=== PATIENT | female | born 1990 | race Hispanic/Latino ===

== ENCOUNTER 2024-04-23 08:21 | Emergency (ER) | payer OTHER ==
--- OUTSIDE RECORDS SUMMARY | 2024-04-23 08:24 | XMS REPORT | Continuity of Care Document ---
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 Start time Last Medication Dose Route Stop Time Status Admin Lidocaine HCl 20 ML X1ED STA 04/02 1300 DC 04/02 IM 04/02 1301 1313 Serums, Toxoids, And Vaccines Sig/Zach Start time Last Medication Dose Route Stop Time Status Admin Tetanus/Diphtheria 0.5 ML X1ED STA 04/02 1259 DC Toxoids IM 04/02 1300 Patient Discharge Departure Vital Signs/Condition Vital Signs First Documented: Result Date Time Pulse Ox 97 04/02 1255 B/P 132/87 04/02 1255 B/P Mean 102 04/02 1255 O2 Delivery Room air 04/02 1255 Temp 36.9 04/02 1255 Pulse 115 04/02 1255 Resp 20 04/02 1255 Last Documented: Result Date Time Pulse Ox 97 04/02 1255 B/P 132/87 04/02 1255 B/P Mean 102 04/02 1255 O2 Delivery Room air 04/02 1255 Temp 36.9 04/02 1255 Pulse 115 04/02 1255 Resp 20 04/02 1255 All vital signs available at the time of this entry have been reviewed. Condition Stable Clinical Impression Clinical Impression Primary Impression: Laceration of right forearm Secondary Impressions: Laceration of right thumb Disposition Decision Discharge )( Discharged to Home Yes )( Time 1508 )( Date 04/02/21 Discharge/Care Plan Counseled Regarding Diagnosis, Imaging studies, Prescriptions, Need for follow- up, When to return to ED (Auto) Prescriptions Current Visit Scripts CEPHALEXIN (KEFLEX) 500 MG PO Q6H CEPHALEXIN (KEFLEX) 500 MG PO Q6H #28 CAPS KETOROLAC (TORADOL) 10 MG PO Q6H PRN PRN PAIN KETOROLAC (TORADOL) 10 MG PO Q6H PRN PRN PAIN #20 TABS Patient Instructions ED Laceration Ext Skin Glue Ch, ED Laceration, Hand: All Closures Additional Instructions Suture removal in 10 days. You may return to this facility for suture removal. Referrals Pablo Leon MD at 1511 RPT #:[id number] END OF REPORT [facility]
[2024-04-23] MEDS ORDERED: NA CHLORIDE 0.9% 500 ML ONE (09:09)
[2024-04-23] MEDS ORDERED: IBUPROFEN 400 MG TAB ONE (09:09)
[2024-04-23] MEDS ORDERED: NA CHLORIDE 0.9% 3,000 ML ONE (09:09)
[2024-04-23 09:18] LABS: Absolute Lymphocytes (CBC) 0.2 K/uL (0.7-4.9); Absolute Monocytes 0.9 K/uL (0.1-1.3); Absolute Neutrophil 8.5 K/uL (1.8-8.0); Basophils % 0.4 % (0-1.3); Eosinophils % 0.3 % (0-4.4); Hematocrit 40.4 % (36.0-45.0); Hemoglobin 13.1 g/dL (12.0-15.0); Lymphocytes % 2.2 % (15.3-44.8); MCH 25.6 pg (27.0-35.0); MCHC 32.4 g/dL (32.0-36.0); MCV 78.9 fL (80-100); MPV 7.1 fL (7.6-11.3); Monocytes % 9.1 % (3.3-12.3); Platelets 339 thou/uL (152-406); RBC Red Blood Cell Count 5.13 M/uL (3.86-4.86); Red Cell Distribution Width 16.9 % (12.1-15.2)
[2024-04-23] MEDS ORDERED: ALBUTEROL 2.5 MG/3 ML NEB SOL ONE (09:22)
[2024-04-23] MEDS ORDERED: IPRATROPIUM BROM 0.5MG/2.5ML ONE (09:22)
[2024-04-23] MEDS ORDERED: MORPHINE 2 MG/ML SYR ONE (09:23)
[2024-04-23] MEDS ORDERED: ONDANSETRON 4 MG/2 ML VIAL ONE (09:23)
--- NOTE | 2024-04-23 09:30 | RAD REPORT ---
EXAM DESCRIPTION: RAD - Chest Single View - 04/23/2024 9:21 am CLINICAL HISTORY: FEVER Chest pain. COMPARISON: No comparisons FINDINGS: Portable technique limits examination quality. Interstitial markings are mildly prominent, nonspecific finding. No focal consolidation. The heart is normal in size. No displaced fractures. IMPRESSION: Mild prominence interstitium could indicate a viral infection.
[2024-04-23 09:34] LABS: Albumin 3.3 g/dL (3.4-5.0); Albumin/Globulin Ratio 0.7 (1.1-1.8); Anion Gap 6.6 mEq/L (5.0-15.0); Bilirubin Total 0.7 mg/dL (0.2-1.0); Globulin 4.5 g/dL (2.3-3.5); Potassium 3.6 mEq/L (3.5-5.1); Protein, Total 7.8 g/dL (6.4-8.2)
[2024-04-23 09:52] LABS: SARS-CoV-2 Antigen CONTROL BLUE LINE VIS/BG OK; SARS-CoV-2 Antigen Rapid Res Negative (Negative); White Blood Cell Scan OK (OK)
[2024-04-23 09:53] LABS: Blood Morphology Comment NOTED (NOT SEEN); Platelet Estimate ADEQ; Stomatocytes 1+
--- NOTE | 2024-04-23 10:31 | ER ---
Nurse's Notes [facility] Name: Nena Van Age: 33 yrs Sex: Female : 1990 Arrival Date: 04/23/2024 Time: 08:21 Bed 13 Private MD: Diagnosis: Viral pneumonia, influenza A, dehydration Presentation: 04/23 08:39 Chief complaint: Patient states: cough, SOB, chest pain, and headache since yesterday kc6 at 1230. reports fever and chills, took NyQuil at 0300. Coronavirus screen: At this time, the client does not indicate any symptoms associated with coronavirus-19. Ebola Screen: No symptoms or risks identified at this time. Initial Sepsis Screen: Does the patient meet any 2 criteria? HR > 90 bpm. Does the patient have a suspected source of infection? No. Patient's initial sepsis screen is negative. Risk Assessment: Do you want to hurt yourself or someone else? Patient reports no desire to harm self or others. Onset of symptoms was April 23, 2024. 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 - Infectious Disease History:: Denies. - Social history:: Smoking status: Patient reports the use of cigarette tobacco products, denies chronic smoking, but will smoke occasionally. Screenin:42 [facility] ED Fall Risk Assessment (Adult) History of falling in the last 3 months, 6 including since admission No falls in past 3 months (0 pts) Confusion or Disorientation No (0 pts) Intoxicated or Sedated No (0 pts) Impaired Gait No (0 pts) Mobility Assist Device Used No (0 pt) Altered Elimination No (0 pt) Score/Fall Risk Level 0 - 2 = Low Risk. Abuse screen: Denies threats or abuse. Denies injuries from another. Nutritional screening: No deficits noted. Tuberculosis screening: No symptoms or risk factors identified. Assessment: 09:15 General: Appears in no apparent distress. uncomfortable, obese, well groomed, well kc6 developed, Behavior is calm, cooperative, appropriate for age, Reports chills for 12-24 hours, fever for 12-24 hours, feeling ill for 12-24 hours. Pain: Complains of pain in chest Pain does not radiate. Pain currently is 9 out of 10 on a pain scale. Neuro: Level of Consciousness is awake, alert, obeys commands, Oriented to person, place, time, situation, Appropriate for age Reports headache. Cardiovascular: Reports chest pain, shortness of breath, Heart tones S1 S2 present Capillary refill < 3 seconds Rhythm is sinus tachycardia. Respiratory: Airway is patent Trachea midline Respiratory effort is even, labored, pursed lip, using tripod position, Respiratory pattern is symmetrical, tachypnea Breath sounds with wheezes bilaterally. Onset: The symptoms/episode began/occurred yesterday, the patient has moderate shortness of breath. GI: No signs and/or symptoms were reported involving the gastrointestinal system. : No signs and/or symptoms were reported regarding the genitourinary system. EENT: No signs and/or symptoms were reported regarding the EENT system. Derm: No signs and/or symptoms reported regarding the dermatologic system. Skin is intact, is healthy with good turgor, Skin is pink, warm \T\ dry. Musculoskeletal: No signs and/or symptoms reported regarding the musculoskeletal system. Circulation, motion, and sensation intact. Capillary refill < 3 seconds, Range of motion: intact in all extremities. 09:41 Reassessment: Patient states feeling better. Patient states symptoms have improved. kc6 Pain: Pain currently is 2 out of 10 on a pain scale. 10:16 Reassessment: Patient appears in no apparent distress at this time. No changes from kc6 previously documented assessment. Patient and/or family updated on plan of care and expected duration. Pain level reassessed. Patient is alert, oriented x 3, equal unlabored respirations, skin warm/dry/pink. 10:32 Reassessment: d/c pending IV fluid completion. kc6 Vital Signs: 08:39 BP 127 / 85; Pulse 121; Resp 26 S; Temp 98.9(O); Pulse Ox 96% on R/A; Weight 117.93 kg kc6 (R); Height 5 ft. 3 in. (R); Pain 9/10; 09:15 BP 110 / 81; Pulse 112; Resp 27 S; Pulse Ox 95% on R/A; kc6 10:16 BP 114 / 73; Pulse 104; Resp 28 S; Pulse Ox 96% on R/A; kc6 08:39 Body Mass Index 46.05 (117.93 kg, 160.02 cm) kc6 08:39 Pain Scale: Adult kc6 ED Course: 08:24 Patient arrived in ED. mg5 08:39 Kristel Maddox, RN is Primary Nurse. kc6 08:41 Triage completed. kc6 08:41 Arm band placed on. kc6 08:41 Patient has correct armband on for positive identification. Bed in low position. Call kc6 light in reach. Side rails up X 1. Adult w/ patient. 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 Pulse ox on. NIBP on. Pillow given. 08:46 Kallie Iniguez MD is Attending Physician. sp3 09:07 Inserted saline lock: 20 gauge in right antecubital area, using aseptic technique. kc6 Blood collected. Flushed with 10 mL NS. Patient maintains SpO2 saturation greater than 95% on room air. 09:23 Chest Single View XRAY In Process Unspecified. EDMS 11:41 No provider procedures requiring assistance completed. IV discontinued, intact, kc6 bleeding controlled, No redness/swelling at site. Pressure dressing applied. Administered Medications: 09:15 Drug: Ibuprofen PO 800 mg PO once Route: PO; kc6 09:41 Follow up: Response: No adverse reaction kc6 09:15 Drug: NS 0.9% IV (30 ml/kg) 30 ml/kg IV at bolus once; Sepsis Protocol Route: IV; Rate: kc6 bolus; Site: right antecubital; 11:40 Follow up: Response: No adverse reaction; IV Status: Completed infusion; IV Intake: kc6 3500ml 09:31 Drug: DuoNeb Nebulize (3:1) (2.5 mg - 0.5 mg) 3 ml Nebulizer once Route: Nebulizer; kc6 09:41 Follow up: Response: No adverse reaction; Wheezing diminished kc6 09:31 Drug: morphine IVP or IV 2 mg IVP once over 4 mins Route: IVP; Infused Over: 4 mins; kc6 Site: right antecubital; 09:41 Follow up: Response: No adverse reaction; Pain is decreased; RASS: Alert and Calm (0) kc6 09:32 Drug: Ondansetron IVP 4 mg IVP once; over 2 minutes Route: IVP; Site: right antecubital;kc6 09:40 Follow up: Response: No adverse reaction kc6 Medication: 11:41 VIS not applicable for this client. kc6 Intake: 11:40 IV: 3500ml; Total: 3500ml. kc6 Outcome: 10:30 Discharge ordered by . franklin 11:41 Discharged to home ambulatory, with significant other, kc6 11:41 Condition: improved 11:41 Discharge instructions given to patient, significant other, Instructed on discharge instructions, follow up and referral plans. medication usage, Demonstrated understanding of instructions, follow-up care, medications, Prescriptions given X 2, 11:41 Patient left the ED. kc6 Signatures: Dispatcher [employer] EDMS Kallie Iniguez MD MD sp3 Kristel Maddox RN RN kc6 Krystle Finn mg5 Corrections: (The following items were deleted from the chart) 08:42 08:39 BP 127 / 85; Pulse 121bpm; Resp 20bpm; Spontaneous; Pulse Ox 96% RA; Temp 98.9F kc6 Oral; 117.93 kg Reported; Height 5 ft. 3 in. Reported; BMI: 46.0; Pain 05/02, Adult; kc6
--- NOTE | 2024-04-23 10:31 | EDPHYS ---
Physician Documentation [facility] Name: Nena Van Age: 33 yrs Sex: Female : 1990 Arrival Date: 04/23/2024 Time: 08:21 Bed 13 Private MD: ED Physician Kallie Iniguez HPI: 04/23 09:23 This 33 yrs old Female presents to ER via Ambulatory with complaints of Chest sp3 Pain, Shortness Of Breath. 09:23 33-year-old female with no reported past medical history presents with cough, sp3 congestion, fever yesterday evening, body aches and dehydration type symptoms. She denies any known sick contacts. She also endorses headache, chest pain and shortness of breath particularly on cough. She denies any vomiting, abdominal pain, rash, syncope, neurological complaints, or any other signs or symptoms on ROS at this time.. 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 - Infectious Disease History:: Denies. - Social history:: Smoking status: Patient reports the use of cigarette tobacco products, denies chronic smoking, but will smoke occasionally. ROS: 09:24 Neck: Negative for injury, pain, and swelling, Cardiovascular: Negative for chest pain, sp3 palpitations, and edema, Abdomen/GI: Negative for abdominal pain, nausea, vomiting, diarrhea, and constipation, Back: Negative for injury and pain, MS/Extremity: Negative for injury and deformity, Skin: Negative for injury, rash, and discoloration, Neuro: Negative for headache, weakness, numbness, tingling, and seizure, Psych: Negative for depression, anxiety, suicide ideation, homicidal ideation, and hallucinations, Allergy/Immunology: Negative for hives, rash, and allergies, Endocrine: Negative for neck swelling, polydipsia, polyuria, polyphagia, and marked weight changes, Hematologic/Lymphatic: Negative for swollen nodes, abnormal bleeding, and unusual bruising, 09:24 All other systems are negative, Exam: 09:24 Constitutional: This is a well developed, well nourished patient who is awake, alert, sp3 and in no acute distress. Head/Face: Normocephalic, atraumatic. Eyes: Pupils equal round and reactive to light, extra-ocular motions intact. Lids and lashes normal. Conjunctiva and sclera are non-icteric and not injected. Cornea within normal limits. Periorbital areas with no swelling, redness, or edema. Neck: Trachea midline, no thyromegaly or masses palpated, and no cervical lymphadenopathy. Supple, full range of motion without nuchal rigidity, or vertebral point tenderness. No Meningismus. Chest/axilla: Normal chest wall appearance and motion. Nontender with no deformity. No lesions are appreciated. Abdomen/GI: Soft, non-tender, with normal bowel sounds. No distension or tympany. No guarding or rebound. No evidence of tenderness throughout. Back: No spinal tenderness. No costovertebral tenderness. Full range of motion. MS/ Extremity: Pulses equal, no cyanosis. Neurovascular intact. Full, normal range of motion. Neuro: Awake and alert, GCS 15, oriented to person, place, time, and situation. Cranial nerves II-XII grossly intact. Motor strength 5/5 in all extremities. Sensory grossly intact. Cerebellar exam normal. Normal gait. Psych: Awake, alert, with orientation to person, place and time. Behavior, mood, and affect are within normal limits. 09:24 Respiratory: Active cough noted coupled with congestion. Patient tachycardic to 112 currently afebrile., 09:26 ECG was reviewed by the Attending Physician. EKG demonstrates sinus tachycardia at 115 sp3 bpm with normal intervals, normal QRS, normal axis, nonspecific diffuse ST's ST changes without evidence of acute ischemia. Vital Signs: 08:39 BP 127 / 85; Pulse 121; Resp 26 S; Temp 98.9(O); Pulse Ox 96% on R/A; Weight 117.93 kg kc6 (R); Height 5 ft. 3 in. (R); Pain 9/10; 09:15 BP 110 / 81; Pulse 112; Resp 27 S; Pulse Ox 95% on R/A; kc6 10:16 BP 114 / 73; Pulse 104; Resp 28 S; Pulse Ox 96% on R/A; kc6 08:39 Body Mass Index 46.05 (117.93 kg, 160.02 cm) kc6 08:39 Pain Scale: Adult kc6 MDM: 08:47 Patient medically screened. sp3 09:25 Data reviewed: vital signs, nurses notes, lab test result(s), EKG, radiologic studies. sp3 ED course: 33-year-old female with no past medical history presents with fever, congestion, cough, shortness of breath and chest pain. Differential diagnosis includes sepsis, pneumonia, viral illness including COVID-19, influenza, other virus, strep, other infection, among others. Workup will include sepsis workup with sepsis protocol. 30 mL/kg normal saline, laboratory values, chest x-ray, swabs and antibiotics as indicated. Disposition pending workup and patient course.. 10:30 ED course: Patient feeling much better and fluid is positive. Heart rate is decreased. sp3 No antibiotics indicated. We will safely discharge patient home at this time.. 04/23 08:48 Order name: Blood Culture Adult (2) sp3 04/23 08:48 Order name: CBC with Diff; Complete Time: 10:14 sp3 04/23 08:48 Order name: CMP; Complete Time: 10:14 sp3 04/23 08:48 Order name: Lactate w/ 2H reflex if indic.; Complete Time: 10:14 sp3 04/23 08:48 Order name: Urinalysis w/ reflexes sp3 04/23 08:48 Order name: Test, Urine sp3 04/23 08:48 Order name: Flu; Complete Time: 10:14 sp3 04/23 08:48 Order name: SARS RAPID; Complete Time: 10:14 sp3 04/23 08:48 Order name: Strep sp3 04/23 09:22 Order name: CBC Smear Scan; Complete Time: 10:14 EDMS 04/23 09:56 Order name: Throat Culture EDMS 04/23 08:48 Order name: Chest Single View XRAY; Complete Time: 09:32 sp3 04/23 08:48 Order name: EKG; Complete Time: 08:49 sp3 04/23 08:48 Order name: Cardiac monitoring; Complete Time: 08:52 sp3 04/23 08:48 Order name: EKG - Nurse/Tech; Complete Time: 08:52 sp3 04/23 08:48 Order name: IV Saline Lock - Large Bore; Complete Time: 09:07 sp3 04/23 08:48 Order name: Labs collected and sent; Complete Time: 09:07 sp3 04/23 08:48 Order name: O2 Per Protocol; Complete Time: 08:52 sp3 04/23 08:48 Order name: O2 Sat Monitoring; Complete Time: 08:52 sp3 04/23 08:48 Order name: Vital Signs; Complete Time: 08:52 sp3 Administered Medications: 09:15 Drug: Ibuprofen PO 800 mg PO once Route: PO; kc6 09:41 Follow up: Response: No adverse reaction kc6 09:15 Drug: NS 0.9% IV (30 ml/kg) 30 ml/kg IV at bolus once; Sepsis Protocol Route: IV; Rate: kc6 bolus; Site: right antecubital; 11:40 Follow up: Response: No adverse reaction; IV Status: Completed infusion; IV Intake: kc6 3500ml 09:31 Drug: DuoNeb Nebulize (3:1) (2.5 mg - 0.5 mg) 3 ml Nebulizer once Route: Nebulizer; kc6 09:41 Follow up: Response: No adverse reaction; Wheezing diminished kc6 09:31 Drug: morphine IVP or IV 2 mg IVP once over 4 mins Route: IVP; Infused Over: 4 mins; kc6 Site: right antecubital; 09:41 Follow up: Response: No adverse reaction; Pain is decreased; RASS: Alert and Calm (0) kc6 09:32 Drug: Ondansetron IVP 4 mg IVP once; over 2 minutes Route: IVP; Site: right antecubital;kc6 09:40 Follow up: Response: No adverse reaction kc6 Disposition Summary: 04/23/24 10:30 Discharge Ordered Notes: Location: Home sp3 Condition: Stable sp3 Diagnosis - Viral pneumonia, influenza A, dehydration sp3 Followup: sp3 - With: Private Physician - When: Upon discharge from the Emergency Department - Reason: Continuance of care Discharge Instructions: - Discharge Summary Sheet sp3 - Influenza, Adult sp3 Forms: - Medication Reconciliation Form sp3 - Antibiotic Education sp3 - Prescription Opioid Use sp3 - Patient Portal Instructions sp3 - Leadership Thank You Letter sp3 - Work release form kc6 Prescriptions: - Tessalon Perles 100 mg Oral Capsule - take 1 capsule ORAL route every 8 hours As needed; 15 capsule; Refills: 0, sp3 Product Selection Permitted - Albuterol Sulfate 2.5 mg /3 mL (0.083 %) Inhalation Solution for Nebulization - inhale 1 unit NEBULIZATION route every 8 hours As needed; 1 Pack; Refills: 0, sp3 Product Selection Permitted Signatures: Dispatcher [employer] EDMS Kallie Iniguez MD MD sp3 Kristel Maddox RN RN kc6 Corrections: (The following items were deleted from the chart) 08:49 08:49 BLOOD CULTURE*+BA.LAB.BRZ ordered. EDMS EDMS 08:49 08:49 CBC+H.LAB.BRZ ordered. EDMS EDMS 08:49 08:49 COMPREHENSIVE METABOLIC PANEL+C.LAB.BRZ ordered. EDMS EDMS 08:49 08:49 LACTATE+C.LAB.BRZ ordered. EDMS EDMS 08:49 08:49 Urinalysis+U.LAB.BRZ ordered. EDMS EDMS 08:49 08:49 Test, Urine+UC.LAB.BRZ ordered. EDMS EDMS 08:49 08:49 Influenza Screen (A \T\ B)+BA.LAB.BRZ ordered. EDMS EDMS 08:49 08:49 SARS-COV-2 Antigen Rapid+I.LAB.BRZ ordered. EDMS EDMS 08:49 08:49 Group A Streptococcus Rapid Sc+BA.LAB.BRZ ordered. EDMS EDMS
[2024-04-23 11:22] LABS: Specific Gravity 1.018 (1.005-1.030); Sqamous Epithelial <5 /HPF (None Seen); Urine Bacteria None Seen /HPF (<20); Urine Bilirubin NEGATIVE (Negative); Urine Blood 1+ (Negative); Urine Clarity Clear (Clear); Urine Color Yellow (Yellow); Urine Culture Reflex Order NOT NEEDED; Urine Glucose NEGATIVE (Negative); Urine Ketones NEGATIVE (Negative); Urine Microscopic Reflex YN ORDER UMIC; Urine Mucus Slight /HPF (None Seen); Urine Nitrite NEGATIVE (Negative); Urine Protein 2+ (Negative); Urine RBC <5 /HPF (None Seen); Urine Urobilinogen Normal (Normal); Urine WBC <5 /HPF (<5)
[2024-04-23 11:23] LABS: Specific Gravity 1.018 (1.005-1.030)
[2024-04-23 11:51] VITALS: TEMP 98.9
[2024-04-23 12:07] VITALS: BP 114/73; O2SAT 96
--- NOTE | 2024-04-25 12:43 | EKG ---
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
== END 2024-04-23 11:41 | disposition home or self-care (01) ==
LOC: ER 08:21
DX: J10.1 Influenza due to other identified influenza virus with other respiratory manifestations (principal); J12.9 Viral pneumonia, unspecified; E86.0 Dehydration; Z11.52 Encounter for screening for COVID-19; F17.210 Nicotine dependence, cigarettes, uncomplicated
CPT/HCPCS: 96365; 93005; 87040 ×2; 87070; 85025; 81001; 36415; 81025; 87081; 83605; 80053; 87804 ×2; 71045; 96375; 99285; 96366; 87811; J7613; J7644; J2270; J2405; J7040; J7030